=== PATIENT | male | born 1950 | race Caucasian/White ===

== ENCOUNTER 2018-04-16 10:39 | Day surgery (SDC) | payer MEDICARE ==
[~2018-04-16] VITALS: Ht 175.3 cm; Wt 107.9 kg
[2018-04-16] MEDS ORDERED: SODIUM CHLORIDE 0.9% 1,000 ML IV SCH (11:08)
[2018-04-16] MEDS ORDERED: FLUMAZENIL 0.1 MG/1 ML, 5ML ONE (11:22)
[2018-04-16] MEDS ORDERED: FENTANYL PF 100 MCG/2ML ONE ×2 (11:22)
[2018-04-16] MEDS ORDERED: MIDAZOLAM 1 MG/ML, 5ML ONE (11:22)
[2018-04-16] MEDS ORDERED: NALOXONE 1 MG/ML, 2ML ONE (11:23)
[2018-04-16] MEDS ORDERED: PLEASE ENTER HEIGHT AND WEIGHT MC SCH (11:30)
[2018-04-16] MEDS ORDERED: LIDOCAINE-MPF 2%, 2ML ONE (11:38)
[2018-04-16 11:43] VITALS: BP 132/85
[2018-04-16 11:52] LABS: INTERNATIONAL NORMALIZED RATIO 1.1 (0.93-1.1); PROTHROMBIN TIME 11.3 Seconds (9.6-11.5)
== END 2018-04-16 15:10 | disposition home or self-care (01) ==
LOC: OUT 10:39
PROVIDERS: ATTEND Internal Medicine Gastroenterology
DX: C22.7 Other specified carcinomas of liver (principal); K76.9 Liver disease, unspecified; M10.9 Gout, unspecified; Z86.19 Personal history of other infectious and parasitic diseases; Z87.891 Personal history of nicotine dependence
CPT/HCPCS: 36415; 47000; 76942; 85610; 88307; 99156; 99157; J2250; J3010; J3490; J2310

== ENCOUNTER 2018-05-09 14:37 | Observation (INO) | payer MEDICARE ==
[~2018-05-09] VITALS: Ht 177.8 cm; Wt 109.1 kg
[2018-05-09] MEDS ORDERED: OMNIPAQUE 350 MG/ML, 100ML BOTTLE ONE (14:42)
[2018-05-09 15:14] LABS: BASOPHILS # (AUTO) 0.11 x10^3/uL (0-0.1); BASOPHILS % (AUTO) 1 % (0-1); EOSINOPHILS # (AUTO) 0.07 x10^3/uL (0-0.4); EOSINOPHILS % (AUTO) 1 % (1-7); LYMPHOCYTES # (AUTO) 2.05 x10^3/uL (1-3.4); LYMPHOCYTES % (AUTO) 17 % (22-44); MD NO; MEAN CORPUSCULAR HEMOGLOBIN 31.7 pg (27.5-34.5); MEAN CORPUSCULAR HGB CONC 33.9 g/dL (33.2-36.2); MEAN CORPUSCULAR VOLUME 93.5 fL (81-97); MONOCYTES # (AUTO) 0.99 x10^3/uL (0.2-0.8); MONOCYTES % (AUTO) 8 % (2-9); NEUTROPHILS # (AUTO) 8.73 x10^3/uL (1.8-6.8); NEUTROPHILS % (AUTO) 73 % (42-75); PLATELET COUNT 335 x10^3/uL (130-400); RED BLOOD COUNT 4.11 x10^6/uL (4.38-5.82); RED CELL DISTRIBUTION WIDTH 14.7 % (9.4-14.8)
[2018-05-09 15:24] LABS: ALANINE AMINOTRANSFERASE 66 U/L (12-78); ALBUMIN 2.4 g/dL (3.4-5.0); ANION GAP 8 mmol/L (5-15); CALCIUM 9.5 mg/dL (8.5-10.1); CHLORIDE 102 mmol/L (98-107)
[2018-05-09 15:29] LABS: ALKALINE PHOSPHATASE 181 U/L (45-117); BILIRUBIN,TOTAL 5.8 mg/dL (0.2-1.0); CREATININE 0.97 mg/dL (0.7-1.3); TOTAL PROTEIN 7.9 g/dL (6.4-8.2); TROPONIN I < 0.015 ng/mL (0.000-0.045)
[2018-05-09 15:39] LABS: INTERNATIONAL NORMALIZED RATIO 1.17 (0.93-1.1); PROTHROMBIN TIME 12.1 Seconds (9.6-11.5)
[2018-05-09] MEDS ORDERED: HEPARIN 5,000 UNITS/ML, 1ML IV PRN ×2 (16:30→18:00)
[2018-05-09] MEDS ORDERED: HEPARIN 5,000 UNITS/ML, 1ML IV ONE ×2 (16:30→18:00)
[2018-05-09] MEDS ORDERED: HEPARIN 25,000 UNITS/500ML PMX 500 ML IV PRN ×2 (16:30→18:00)
[2018-05-09] MEDS ORDERED: HEPARIN 25,000 UNITS/500ML PMX 500 ML ONE (17:11)
[2018-05-09] MEDS ORDERED: HEPARIN 5,000 UNITS/ML, 1ML ONE (17:11)
[2018-05-09] MEDS ORDERED: ONDANSETRON ODT 4 MG PO PRN (17:30)
[2018-05-09] MEDS ORDERED: ONDANSETRON 2MG/ML, 2ML IVPush PRN (17:30)
[2018-05-09] MEDS ORDERED: ZOLP10TA5 PO (17:42)
[2018-05-09] MEDS ORDERED: DOXA4TAB3 PO (17:42)
[2018-05-09 18:20] VITALS: BP 135/80
[2018-05-09 20:13] VITALS: BP 122/75
[2018-05-09] MEDS: ENOXAPARIN 100 MG/ML SQ SCH (20:18)
[2018-05-09] MEDS ORDERED: ZOLPIDEM 10MG TABLET PO SCH (21:00)
[2018-05-09] MEDS ORDERED: DOXAZOSIN 2MG TABLET PO SCH (22:30)
[2018-05-10 00:23] VITALS: BP 117/72
[2018-05-10 06:04] LABS: BASOPHILS # (AUTO) 0.08 x10^3/uL (0-0.1); BASOPHILS % (AUTO) 1 % (0-1); EOSINOPHILS % (AUTO) 1 % (1-7); LYMPHOCYTES # (AUTO) 2.39 x10^3/uL (1-3.4); LYMPHOCYTES % (AUTO) 21 % (22-44); MD NO; MEAN CORPUSCULAR HEMOGLOBIN 31.7 pg (27.5-34.5); MEAN CORPUSCULAR HGB CONC 34.4 g/dL (33.2-36.2); MEAN PLATELET VOLUME 7.9 fL (7.4-10.4); MONOCYTES # (AUTO) 1.07 x10^3/uL (0.2-0.8); MONOCYTES % (AUTO) 9 % (2-9); NEUTROPHILS % (AUTO) 69 % (42-75); PLATELET COUNT 322 x10^3/uL (130-400); RED BLOOD COUNT 3.82 x10^6/uL (4.38-5.82)
[2018-05-10 06:07] LABS: ANION GAP 9 mmol/L (5-15); CALCIUM 9.4 mg/dL (8.5-10.1); CHLORIDE 104 mmol/L (98-107); CREATININE 0.81 mg/dL (0.7-1.3)
[2018-05-10 08:00] VITALS: BP 116/74
[2018-05-10] MEDS: ENOXAPARIN 100 MG/ML SQ SCH (08:15)
[2018-05-10] MEDS ORDERED: ENOX100S4 SQ (14:43)
[2018-05-10] MEDS ORDERED: DOXAZOSIN 2MG TABLET PO SCH (21:00)
== END 2018-05-10 15:42 | disposition home or self-care (01) ==
LOC: ED 16:23 → INTOOBSV 16:24 → EDIP 16:24 → ED 17:00 → 4EST 17:52 → DCLOUNGE 05-10 15:25
PROVIDERS: ADMIT Internal Medicine; ATTEND Internal Medicine
DX: I26.99 Other pulmonary embolism without acute cor pulmonale (principal); R91.1 Solitary pulmonary nodule; B19.9 Unspecified viral hepatitis without hepatic coma; D72.829 Elevated white blood cell count, unspecified; R94.5 Abnormal results of liver function studies; Z85.05 Personal history of malignant neoplasm of liver; Z87.891 Personal history of nicotine dependence
CPT/HCPCS: 36415; 71260; 74177; 78306; 80048; 80053; 82140; 83880; 84484; 85025; 85520; 85610; 93005; 93306; 93970; 96372; 96374; 96375; 99285; A9503; G0378; J1644; J1650; Q9967

== ENCOUNTER → 2018-05-09 | Outpatient (CLI) | payer MEDICARE ==
[~2018-05-09] MED LIST: DOXA4TAB3 PO; ENOX100S4 SQ; OMNIPAQUE 350 MG/ML, 100ML BOTTLE ONE; ZOLP10TA5 PO
== END | disposition home or self-care (01) ==
LOC: PETCFH 11:01
PROVIDERS: ATTEND Internal Medicine
DX: I26.99 Other pulmonary embolism without acute cor pulmonale (principal); N32.3 Diverticulum of bladder; R91.8 Other nonspecific abnormal finding of lung field; R16.0 Hepatomegaly, not elsewhere classified; R59.0 Localized enlarged lymph nodes; C22.1 Intrahepatic bile duct carcinoma; Z87.891 Personal history of nicotine dependence
CPT/HCPCS: 71260; 74177; 78306; A9503; Q9967

== ENCOUNTER → 2018-05-22 | Outpatient (CLI) | payer MEDICARE ==
[~2018-05-22] MED LIST changes: -OMNIPAQUE 350 MG/ML, 100ML BOTTLE ONE
== END | disposition home or self-care (01) ==
LOC: CFH 08:28
PROVIDERS: ATTEND Internal Medicine
DX: C78.7 Secondary malignant neoplasm of liver and intrahepatic bile duct (principal); R16.1 Splenomegaly, not elsewhere classified
CPT/HCPCS: 76705

== ENCOUNTER 2018-06-25 16:48 | Inpatient (IN) | payer MEDICARE ==
[~2018-06-25] VITALS: Ht 177.8 cm; Wt 114.9 kg
[2018-06-25 17:36] LABS: MEAN CORPUSCULAR HEMOGLOBIN 34.1 pg (27.5-34.5); MEAN CORPUSCULAR HGB CONC 34.4 g/dL (33.2-36.2); MEAN CORPUSCULAR VOLUME 99.4 fL (81-97); MEAN PLATELET VOLUME 7.6 fL (7.4-10.4); PLATELET COUNT 255 x10^3/uL (130-400); RED BLOOD COUNT 2.61 x10^6/uL (4.38-5.82); RED CELL DISTRIBUTION WIDTH 25.9 % (9.4-14.8)
[2018-06-25 17:47] LABS: ALANINE AMINOTRANSFERASE 136 U/L (12-78); ALBUMIN 1.7 g/dL (3.4-5.0); ANION GAP 12 mmol/L (5-15); CHLORIDE 101 mmol/L (98-107); CREATININE 2.41 mg/dL (0.7-1.3)
[2018-06-25 17:50] LABS: ALKALINE PHOSPHATASE 246 U/L (45-117); BILIRUBIN,TOTAL 2.6 mg/dL (0.2-1.0); TOTAL PROTEIN 5.9 g/dL (6.4-8.2)
[2018-06-25] MEDS ORDERED: LIDOCAINE 2%,20 ML JEL.PF.APP MM ONE ×2 (18:00→18:44)
[2018-06-25 18:17] LABS: BASOPHILS # (AUTO) 0.27 x10^3/uL (0-0.1); BASOPHILS % (AUTO) 2 % (0-1); EOSINOPHILS % (AUTO) 0 % (1-7); LYMPHOCYTES # (AUTO) 1.87 x10^3/uL (1-3.4); LYMPHOCYTES % (AUTO) 12 % (22-44); MD MORPH REVIEW ONLY; MONOCYTES # (AUTO) 1.27 x10^3/uL (0.2-0.8); MONOCYTES % (AUTO) 8 % (2-9); NEUTROPHILS # (AUTO) 11.95 x10^3/uL (1.8-6.8); NEUTROPHILS % (AUTO) 78 % (42-75)
[2018-06-25 18:19] LABS: <PLATELET ESTIMATE> ADEQUATE; ANISOCYTOSIS 1+
[2018-06-25 18:20] LABS: <PLT MORPHOLOGY> NORMAL PLT MORPH
[2018-06-25 18:32] LABS: INTERNATIONAL NORMALIZED RATIO 1.31 (0.93-1.1); PROTHROMBIN TIME 13.6 Seconds (9.6-11.5)
[2018-06-25] MEDS ORDERED: CEFTRIAXONE PMX 2GM/50ML 50 ML IV SCH (19:30)
[2018-06-25] MEDS ORDERED: SODIUM CHLORIDE 0.9% 1,000ML IVBOLUS ONE ×3 (19:30→20:00)
[2018-06-25] MEDS ORDERED: CEFTRIAXONE PMX 2GM/50ML 50 ML ONE (19:36)
[2018-06-25 19:40] LABS: MICROSCOPIC INDICATED
[2018-06-25 19:46] LABS: CULTURE INDICATED? YES
[2018-06-25] MEDS ORDERED: ENOX40SY4 SQ (20:11)
[2018-06-25] MEDS ORDERED: ZOLP-413 PO (20:11)
[2018-06-25] MEDS ORDERED: hydrALAzine 20 MG/ML, 1ML IVPush PRN (20:30)
[2018-06-25] MEDS ORDERED: ONDANSETRON ODT 4 MG PO PRN (20:30)
[2018-06-25] MEDS ORDERED: DOCUSATE 100 MG CAPSULE PO PRN (20:30)
[2018-06-25 21:48] VITALS: BP 121/71
[2018-06-25] MEDS: ZOLPIDEM 10MG TABLET PO SCH (22:03)
[2018-06-25] MEDS: SODIUM CHLORIDE 0.9% 1,000 ML IV SCH (23:00)
[2018-06-26 01:31] VITALS: BP 102/65
[2018-06-26 05:21] LABS: MEAN CORPUSCULAR HEMOGLOBIN 34.8 pg (27.5-34.5); MEAN CORPUSCULAR HGB CONC 35.1 g/dL (33.2-36.2); MEAN CORPUSCULAR VOLUME 99.1 fL (81-97); MEAN PLATELET VOLUME 7.6 fL (7.4-10.4); PLATELET COUNT 257 x10^3/uL (130-400); RED BLOOD COUNT 2.36 x10^6/uL (4.38-5.82); RED CELL DISTRIBUTION WIDTH 26.6 % (9.4-14.8)
[2018-06-26 05:31] LABS: ANION GAP 10 mmol/L (5-15); CALCIUM 7.4 mg/dL (8.5-10.1); CHLORIDE 105 mmol/L (98-107)
[2018-06-26 05:32] LABS: CREATININE 1.87 mg/dL (0.7-1.3)
[2018-06-26 05:44] LABS: BASOPHILS # (AUTO) 0.06 x10^3/uL (0-0.1); BASOPHILS % (AUTO) 1 % (0-1); EOSINOPHILS # (AUTO) 0.21 x10^3/uL (0-0.4); EOSINOPHILS % (AUTO) 2 % (1-7); LYMPHOCYTES # (AUTO) 2.61 x10^3/uL (1-3.4); LYMPHOCYTES % (AUTO) 20 % (22-44); MD SCAN; MONOCYTES % (AUTO) 13 % (2-9); NEUTROPHILS # (AUTO) 8.35 x10^3/uL (1.8-6.8); NEUTROPHILS % (AUTO) 65 % (42-75)
[2018-06-26 06:54] VITALS: BP 100/65
[2018-06-26] MEDS: CEFTRIAXONE PMX 1GM/50ML 50 ML IV SCH ×2 (08:39→19:45)
[2018-06-26] MEDS: DOXAZOSIN 2MG TABLET PO SCH (08:53)
[2018-06-26] MEDS: ENOXAPARIN 120MG/0.8ML SQ SCH ×2 (08:56→19:46)
[2018-06-26] MEDS: SODIUM CHLORIDE 0.9% 1,000 ML IV SCH ×2 (09:32→19:46)
[2018-06-26 13:31] VITALS: BP 98/63
[2018-06-26 19:30] VITALS: BP 108/68
[2018-06-26] MEDS: ZOLPIDEM 10MG TABLET PO SCH (19:46)
[2018-06-27 00:56] VITALS: BP 109/66
[2018-06-27] MEDS: SODIUM CHLORIDE 0.9% 1,000 ML IV SCH (05:36)
[2018-06-27 06:01] LABS: ANION GAP 11 mmol/L (5-15); CALCIUM 7.6 mg/dL (8.5-10.1); CHLORIDE 108 mmol/L (98-107); CREATININE 1.58 mg/dL (0.7-1.3)
[2018-06-27 07:23] VITALS: BP 119/74
[2018-06-27] MEDS: CEFTRIAXONE PMX 1GM/50ML 50 ML IV SCH (08:15)
[2018-06-27] MEDS: DOXAZOSIN 2MG TABLET PO SCH (08:15)
[2018-06-27] MEDS: ENOXAPARIN 120MG/0.8ML SQ SCH (08:15)
[2018-06-27] MEDS ORDERED: CEFI400C PO (13:10)
[2018-06-27 13:50] VITALS: BP 96/65
== END 2018-06-27 16:35 | disposition home or self-care (01) | DRG 871 ==
LOC: ED 19:42 → EDIP 20:07 → 3NE 21:00 → 3NW 06-27 11:49 → DCLOUNGE 06-27 16:30
PROVIDERS: ADMIT Family Medicine; ATTEND Family Medicine
DX: A41.9 Sepsis, unspecified organism (principal); N17.0 Acute kidney failure with tubular necrosis; E43 Unspecified severe protein-calorie malnutrition; I26.99 Other pulmonary embolism without acute cor pulmonale; C22.0 Liver cell carcinoma; R18.8 Other ascites; B19.20 Unspecified viral hepatitis C without hepatic coma; D64.81 Anemia due to antineoplastic chemotherapy; B96.1 Klebsiella pneumoniae [K. pneumoniae] as the cause of diseases classified elsewhere; B95.2 Enterococcus as the cause of diseases classified elsewhere; T45.1X5A Adverse effect of antineoplastic and immunosuppressive drugs, initial encounter; N40.0 Benign prostatic hyperplasia without lower urinary tract symptoms; N30.81 Other cystitis with hematuria; R31.9 Hematuria, unspecified; Y92.89 Other specified places as the place of occurrence of the external cause; Z79.02 Long term (current) use of antithrombotics/antiplatelets; Z82.49 Family history of ischemic heart disease and other diseases of the circulatory system; Z82.5 Family history of asthma and other chronic lower respiratory diseases; Z85.05 Personal history of malignant neoplasm of liver; Z86.711 Personal history of pulmonary embolism; Z87.891 Personal history of nicotine dependence; Z82.3 Family history of stroke; Z92.21 Personal history of antineoplastic chemotherapy; Z68.36 Body mass index [BMI] 36.0-36.9, adult
CPT/HCPCS: 36415; 74176; 80048; 80053; 81001; 83605; 83690; 85025; 85610; 85730; 86850; 86900; 87040; 87077; 87086; 87186; 96365; G0378; J0696; J1650; J7030